=== PATIENT | male | born 1970 | race Caucasian/White ===

== ENCOUNTER 2019-04-30 11:17 | Observation (INO) ==
[2019-04-30] MEDS ORDERED: Nitroglycerin 0.4 MG TAB.SUBL SL PRN (11:34)
[2019-04-30] MEDS ORDERED: Isovue-370 500 ML BOTTLE IVP ONE (11:36)
--- NOTE | 2019-04-30 11:40 | Emergency Department Note ---
Disposition Clinical Impression: Chest pain Qualifiers: Chest pain type: unspecified Qualified Code(s): R07.9 - Chest pain, unspecified Disposition: Still a Patient Time of Disposition: 11:40 General Adult HPI - General Chief complaint: ED Weakness Stated complaint: GREEN,Left shoulder/leg pain,weakness Time Seen by Provider: 04/30/19 11:24 Source: patient Limitations: no limitations Nursing Notes Reviewed: Yes Vital Signs Reviewed: Yes - History of Present Illness HPI Narrative: Attestation note: Patient was seen with the emergency medicine resident/nurse practitioner/fausto velez community relations assistant/transitional resident/medical student: Dr. Silvestre Thorpe I have personally performed a face to face evaluation on this patient. I have reviewed and agree with history and physical examination patient management and disposition. I was present for the significant portions of the performance and interpretation of procedures and EKGs. Briefly the salient points of the case are as follows: 49-year-old male presents with chest discomfort and left arm pain and left lower extremity dysesthesias since Tuesday. Currently chest pain-free aggravating or alleviating symptoms he is hypertensive 154/113. This had a history of hypertension however elected to discontinue his blood pressure medications. Patient has no sensorimotor levels. Patient's heart scores about 4. Patient will undergo CT scan of the head to exclude neurologic issues aortogram to exclude the possibility of aortic dissection troponin and other screening labs with admission anticipated. Disposition pending. Pain Scale: 0 Past Medical History - Past Medical History Medical history: Reports: no medical history Psychiatric history: Reports: no psych history - Social History Smoking Status: Current every day smoker Alcohol use: Reports: occasionally Drug use: Reports: none Physical Exam - General Limitations: no limitations General appearance: alert, in no apparent distress Course Vital Signs Temperature 97.8 F 04/30/19 11:26 Pulse Rate 86 04/30/19 11:26 Respiratory Rate 20 04/30/19 11:26 Blood Pressure 154/114 04/30/19 11:26 O2 Sat by Pulse Oximetry 98 04/30/19 11:26 Temperature 97.8 F 04/30/19 11:26 Pulse Rate 86 04/30/19 11:26 Respiratory Rate 20 04/30/19 11:26 Blood Pressure 154/114 04/30/19 11:26 O2 Sat by Pulse Oximetry 98 04/30/19 11:26 Oxygen Delivery Oxygen Delivery Room Air
--- NOTE | 2019-04-30 11:46 | Emergency Department Note ---
Disposition Clinical Impression: Unstable angina, Elevated blood pressure reading Disposition: Admitted As Inpatient Referrals: NONE,PCP [Primary Care Provider] - Forms: ED Satisfaction Letter Time of Disposition: 13:43 General Adult HPI - General Chief complaint: ED Weakness Stated complaint: GREEN,Left shoulder/leg pain,weakness Time Seen by Provider: 04/30/19 11:24 Source: patient Limitations: no limitations Nursing Notes Reviewed: Yes Vital Signs Reviewed: Yes - History of Present Illness HPI Narrative: 49-year-old male presents emergency department with concern for chest pain that started 3 days ago. Patient states that it was about 3:00 in the morning on Tuesday when he experienced some burning symptoms that he thought was his reflux. Patient states that he felt that there was some radiation of the symptoms into his left upper extremity and left neck and face. Patient states that the chest pain went away shortly afterward. 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 Stated he had a funny feeling in his face as well then. Has not taken anything to help his symptoms. He notices that exertion causes symptoms to become worse but nothing alleviates them. Patient states that he has had some intermittent left leg extremity numbness as well. Reports a DVT study that was negative at an outside facility. Reports that this is been going on for the last couple months. Patient is a smoker. He does have high blood pressure which he does not take any medication for anymore. Pain Scale: 0 - Related Data Allergies Allergy/AdvReac Type Severity Reaction Status Date / Time No Known Allergies Allergy Verified 04/30/19 11:52 All systems ED: reviewed and negative except as stated. Review of Systems: As Per HPI Constitutional: Denies: fever Cardiovascular: Reports: chest pain Respiratory: Denies: dyspnea Gastrointestinal: Denies: abdominal pain, nausea Musculoskeletal: Denies: back pain, neck pain Neurological: Reports: weakness, numbness, paresthesias Past Medical History - Past Medical History Attestation: Yes The following information was validated with the patient. Medical history: Reports: hypertension Psychiatric history: Reports: no psych history - Social History Smoking Status: Current every day smoker Alcohol use: Reports: occasionally Drug use: Reports: none Physical Exam - General Limitations: no limitations General appearance: alert, in no apparent distress - Head Head exam: normocephalic - Eye Eye exam: Present: EOMI - ENT ENT exam: mucous membranes moist - Neck Neck exam: Present: trachea midline - Chest Chest inspection: Present: symmetric chest wall rise - Respiratory Respiratory exam: Present: normal lung sounds bilaterally. Absent: respiratory distress, accessory muscle use - Cardiovascular Cardiovascular exam: Present: regular rate, normal rhythm, normal heart sounds - Abdominal Exam Abdominal exam: Present: soft, Non-Tender. Absent: distention, guarding, rebound, rigidity - Extremities Exam Extremities exam: Present: normal capillary refill - Back Exam Back exam: Present: full ROM - Neurological Exam Neurological exam: Present: alert, oriented X3, CN II-XII intact, other (NIH of 0, GCS 15). Absent: motor sensory deficit - Psychiatric Psychiatric exam: Present: normal affect, normal mood - Skin Skin exam: Present: warm, dry, intact, normal color. Absent: rash Course Vital Signs Temperature 97.8 F 04/30/19 11:26 Pulse Rate 86 04/30/19 11:26 Respiratory Rate 20 04/30/19 11:26 Blood Pressure 154/114 04/30/19 11:26 O2 Sat by Pulse Oximetry 98 04/30/19 11:26 Temperature 97.8 F 04/30/19 11:26 Pulse Rate 85 04/30/19 13:13 Respiratory Rate 16 04/30/19 13:13 Blood Pressure 106/71 04/30/19 13:13 O2 Sat by Pulse Oximetry 96 04/30/19 13:13 Oxygen Delivery Oxygen Delivery Room Air Medical Decision Making - [facility] Narrative Medical decision making narrative: 49-year-old male presents emergency department with concern for chest pain as well as some intermittent subjective numbness and tingling in his left upper and left lower extremity. Patient currently chest pain-free at this time but having numbness and tingling left upper extremity. EKG did not reveal any ischemic changes. Troponin negative. Chest x-ray revealed no acute cardiopulmonary abnormality. CT scan of head was obtained as patient was having numbness in left upper extremity and lower extremity which could be strokelike. NIH was 0 and symptoms have been going on for well over 24 hours which puts him out of the window and out of consideration for TPA. 12:49 patient had improvement of symptoms of numbness and tingling in his left upper extremity after administration of nitroglycerin. Blood pressure is also significantly improved. We obtained dissection study and this was negative for evidence of dissection. There was incidental finding of compression fracture. I discussed this with patient. Patient with heart score 4. Offered him admission as there is concern that his symptoms may be unstable in nature as they have been waxing and waning over the last few days. He agreed as well as his . Also, with poor compliance with his medications, this will be an appropriate time to address that. Dr. Tony accepted the patient. He is full code. Chest X-Ray 04/30/19 11:35 IMPRESSION: No active cardiopulmonary disease D/ / Tres Grimaldo MD / Tres Grimaldo MD Interpreting Provider: Tres Grimaldo MD Head CT 04/30/19 11:35 IMPRESSION: No acute intracranial abnormality. D/ / Neymar Fernando MD / Neymar Fernando MD Interpreting Provider: Neymar Fernando MD Dissection 04/30/19 11:36 IMPRESSION: No acute abnormality in the chest, abdomen or pelvis. D/ / 04/30/2019 13:26:19 Curtis Perrin MD / rikki Interpreting Provider: Curtis Perrin MD - Lab Data Result diagrams: 04/30/19 11:48 04/30/19 11:48 Lab Results 04/30/19 04/30/19 Range/Units 11:48 11:48 WBC 6.9 (4.3-11.1) K/mcL RBC 4.69 (4.19-5.50) M/mcL Hgb 16.3 (12.9-16.9) g/dL Hct 45.6 (37.5-50.1) % MCV 97.2 (83.0-100.0) fL MCH 34.8 H (28.0-33.3) pg MCHC 35.7 H (31.6-35.5) g/dL RDW 12.2 (11.5-14.5) % Plt Count 255 (140-400) K/mcL MPV 9.0 L (9.4-12.4) fL Immature Gran % 0.3 (0-4) % Seg Neutrophils % 48.9 % Lymphocytes % 39.1 % Monocytes % 9.0 % Eosinophils % 1.7 % Basophils % 1.0 % Neutrophils # 3.4 (1.6-8.9) K/mcL Lymphocytes # 2.7 (0.6-4.6) K/mcL Monocytes # 0.6 (0.0-1.3) K/mcL Eosinophils # 0.1 (0.0-0.6) K/mcL Basophils # 0.1 (0.0-0.2) K/mcL Sodium 136 (136-145) mEq/L Potassium 4.1 (3.5-5.1) mEq/L Chloride 104 (98-107) mEq/L Carbon Dioxide 28 (23-29) mEq/L BUN 9 (6-20) mg/dL Creatinine 0.92 (0.70-1.30) mg/dL Est GFR ( Amer) > 60 (> 60) Est GFR (Non-Af Amer) > 60 (> 60) BUN/Creatinine Ratio 10 (6-26) Glucose 109 H (70-105) mg/dL Calculated Osmolality 281 (280-300) Calcium 9.2 (8.6-10.3) mg/dL Troponin I < 0.03 (< 0.04) ng/mL - Radiology Data Radiology results reviewed: Yes I reviewed the patient's radiology results. - EKG Data EKG #1 EKG attestation: Yes I reviewed and interpreted this EKG. EKG results narrative: 1200 Heart rate 86 bpm, HI interval 164 ms, QRS duration 77 ms, QT 325, normal axis. Sinus rhythm ventricular rate 86 bpm. No evidence of any ischemic ST changes. Compared to a study performed on 03/10/2004. Heart Score - Score History: Moderately Suspicious EKG: Normal Age: 45-65 Risk Factors: Equal/Greater than 3 risk factor or history of atherosclerotic disease Troponin: Less than normal limit HEART Score Total: 4
[2019-04-30 12:08] LABS: Basophils # 0.1 K/mcL (0.0-0.2); Eosinophils # 0.1 K/mcL (0.0-0.6); Eosinophils % 1.7 %; Hematocrit 45.6 % (37.5-50.1); Hemoglobin 16.3 g/dL (12.9-16.9); Immature Granulocytes % 0.3 % (0-4); Lymphocytes # 2.7 K/mcL (0.6-4.6); Lymphocytes % 39.1 %; Mean Corpuscular HGB Conc 35.7 g/dL (31.6-35.5); Mean Corpuscular Hemoglobin 34.8 pg (28.0-33.3); Mean Corpuscular Volume 97.2 fL (83.0-100.0); Monocytes # 0.6 K/mcL (0.0-1.3); Neutrophils # 3.4 K/mcL (1.6-8.9); Platelet Count 255 K/mcL (140-400); Red Blood Count 4.69 M/mcL (4.19-5.50); Red Cell Distribution Width 12.2 % (11.5-14.5); Segmented Neutrophils % 48.9 %; White Blood Count 6.9 K/mcL (4.3-11.1)
[2019-04-30 12:28] LABS: BUN/Creatinine Ratio 10 (6-26); Blood Urea Nitrogen 9 mg/dL (6-20); Calcium 9.2 mg/dL (8.6-10.3); Carbon Dioxide 28 mEq/L (23-29); Chloride 104 mEq/L (98-107); Glucose 109 mg/dL (70-105); Osmolality,Calculated 281 (280-300); Potassium 4.1 mEq/L (3.5-5.1); Sodium 136 mEq/L (136-145); Troponin I < 0.03 ng/mL (< 0.04); eGFR For African Americans > 60 (> 60); eGFR For Non-African Americans > 60 (> 60)
[2019-04-30] MEDS ORDERED: Aspirin 81 MG TAB.CHEW PO STA (13:37)
[2019-04-30] MEDS ORDERED: Naloxone 0.4 MG/ML INJ IVP PRN (15:05)
--- NOTE | 2019-04-30 15:13 | Internal Med History&Physical ---
Date of Encounter: 04/30/19 Time of Encounter: 14:35 Internal Medicine - H&P: HPI Chief complaint: left arm pain/chest discomfort Admitted From: Home Plans for Post Hospital Care: Home History of present illness: Mr. Sutton is a 49 year old male with hx of tobacco abuse, hypertension(not on antihypertensive meds) who presents to the ER for evaluation of left arm pain/tingling with chest discomfort. 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 He states he had minimal chest discomfort which prompted his arrival to the ER. He states this weekend, early Tuesday morning, he was awoken from sleep for severe heart burn and he felt weak all day Tuesday. However does report of [place]. He states his presenting sy mptoms resolved after he received a dose of nitro SL in the ER. Currently he denies any chest pain, sob, arm pain, abd pain, n/v, fever, or chills. He reports of smoking 1-2ppd and is not ready to quit. Reports of not taking any home medications at this time, states his doctor took him off BP meds, because his BP was within normal limits. Ten point ROS is negative except as listed above Past Med Surg Social Fam HX - Past Medical History Medical history: hypertension Psychiatric history: no psych history - Social History Smoking Status: Current every day smoker Alcohol use: occasionally Drug use: none Internal Medicine - H&P: Meds No Known Home Drugs 04/30/19 [History] Allergy/AdvReac Type Severity Reaction Status Date / Time No Known Allergies Allergy Verified 04/30/19 11:52 All Systems PM: A 10-system review of systems was performed and is negative for pertinent findings except as documented above in the HPI. Review of systems: Ten point ROS is negative except as listed above - Constitutional Vitals: Temp Pulse Resp BP Pulse Ox 97.8 F 82 15 126/87 96 04/30/19 11:26 04/30/19 14:00 04/30/19 14:00 04/30/19 14:00 04/30/19 14:00 Exam: General: No acute distress, AAO x 3, morbidly obese HEENT: EOMI, PERRLA, NC/AT, no scleral icterus Respiratory: Clear to auscultate bilaterally, no wheezing, no rales Cardiovascular: Regular, Rate, Rhythm, No murmurs GI: Soft, Non tender, non distended, normal bowel sounds Ext: No edema, no tenderness, positive pulses Neuro: AAO x 3, no focal deficits Rest of the clinical exam is noncontributory Internal Med - H&P Results - Labs CBC & Chem 7: 04/30/19 11:48 04/30/19 11:48 Labs: Short CBC 04/30/19 Range/Units 11:48 WBC 6.9 (4.3-11.1) K/mcL Hgb 16.3 (12.9-16.9) g/dL Hct 45.6 (37.5-50.1) % Plt Count 255 (140-400) K/mcL Neutrophils # 3.4 (1.6-8.9) K/mcL BMP 04/30/19 11:48 Sodium 136 Potassium 4.1 Chloride 104 Carbon Dioxide 28 BUN 9 Creatinine 0.92 Glucose 109 H Calcium 9.2 Cardiac Enzymes 04/30/19 Range/Units 11:48 Troponin I < 0.03 (< 0.04) ng/mL - Impressions ITS Impressions Chest X-Ray 04/30/19 11:35 IMPRESSION: No active cardiopulmonary disease D/ / Tres Grimaldo MD / Tres Grimaldo MD Interpreting Provider: Tres Grimaldo MD Head CT 04/30/19 11:35 IMPRESSION: No acute intracranial abnormality. D/ / Neymar Fernando MD / Neymar Fernando MD Interpreting Provider: Neymar Fernando MD Dissection 04/30/19 11:36 IMPRESSION: No acute abnormality in the chest, abdomen or pelvis. D/ / 04/30/2019 13:26:19 Curtis Perrin MD / rikki Interpreting Provider: Curtis Perrin MD - Assessment and Plan (1) Chest pain Current Visit: Yes Status: Acute Assessment and plan: No prior hx of CAD will admit under observation overnight to rule out ACS no EKG changes reported concerning for ischemia first troponin negative, will monitor serial Troponin f/u 2D echo f/u lipid panel continue Aspirin, lipitor NPO after midnight for nuclear stress test in am consider cardiology evaluation if above test findings are abnormal continue tele monitoring f/u HbA1C LOS < 2 midnights Qualifiers: Chest pain type: unspecified Qualified Code(s): R07.9 - Chest pain, unspecified (2) Elevated blood pressure reading Current Visit: Yes Status: Acute Assessment and plan: Reported to have one reading of elevated BP repeat BP within acceptable range continue to closely monitor consider adding PO antihypertensive therapy if remains hypertensive (3) Tobacco abuse Current Visit: Yes Status: Chronic Assessment and plan: smoking cessation counseling provided patient not ready to quit at this time refused nicotine supplementation therapy (4) DVT prophylaxis Current Visit: Yes Status: Acute Assessment and plan: Heparin SQ (5) Obesity (BMI 30-39.9) Current Visit: Yes Status: Chronic - Time Spent With Patient Total time spent is greater than 50% in coordination of care (as documented) at patient's floor/unit and/or counseling patient:
[2019-04-30] MEDS: *HR* Heparin 5,000 UNIT/ML VIAL SQ SCH (17:24)
[2019-04-30] MEDS ORDERED: Perflutren Lipid Microsphere 1.3 ML in 0.9 % Sodium Chloride 8.7 ML IVP ONE (20:38)
[2019-05-01] MEDS: *HR* Heparin 5,000 UNIT/ML VIAL SQ SCH (05:48)
[2019-05-01 06:44] LABS: Basophils # 0.1 K/mcL (0.0-0.2); Basophils % 1.1 %; Eosinophils # 0.2 K/mcL (0.0-0.6); Eosinophils % 2.7 %; Hematocrit 46.4 % (37.5-50.1); Hemoglobin 15.8 g/dL (12.9-16.9); Immature Granulocytes % 0.3 % (0-4); Lymphocytes # 2.8 K/mcL (0.6-4.6); Mean Corpuscular HGB Conc 34.1 g/dL (31.6-35.5); Mean Corpuscular Hemoglobin 34.3 pg (28.0-33.3); Mean Corpuscular Volume 100.9 fL (83.0-100.0); Mean Platelet Volume 9.1 fL (9.4-12.4); Monocytes # 0.6 K/mcL (0.0-1.3); Monocytes % 9.7 %; Neutrophils # 2.9 K/mcL (1.6-8.9); Platelet Count 243 K/mcL (140-400); Red Cell Distribution Width 12.2 % (11.5-14.5); Segmented Neutrophils % 44.2 %; White Blood Count 6.6 K/mcL (4.3-11.1)
[2019-05-01 07:02] LABS: BUN/Creatinine Ratio 13 (6-26); Blood Urea Nitrogen 12 mg/dL (6-20); Carbon Dioxide 25 mEq/L (23-29); Chloride 105 mEq/L (98-107); Chol/HDL Ratio 3.9 (0-4.9); Cholesterol 144 mg/dL (< 200); Glucose 110 mg/dL (70-105); HDL Cholesterol 37 mg/dL (40-59); LDL Cholesterol,Calculated 80 mg/dL (0-99); Osmolality,Calculated 282 (280-300); Phosphorous 3.8 mg/dL (2.7-4.5); Potassium 4.6 mEq/L (3.5-5.1); Sodium 136 mEq/L (136-145); Triglycerides 136 mg/dL (< 150); eGFR For African Americans > 60 (> 60); eGFR For Non-African Americans > 60 (> 60)
[2019-05-01 07:36] LABS: Estimated Average Glucose 120 mg/dl; Hemoglobin A1C 5.8 %
[2019-05-01] MEDS: Regadenoson 0.4 MG/5 ML SYRINGE IVP ONE ×2 (08:16→08:20)
[2019-05-01 11:02] VITALS: BP 103/58
--- NOTE | 2019-05-01 14:09 | Discharge Summary ---
- NOTES TO OUTPATIENT PROVIDER Notes to Outpatient Provider: Pt admitted for chest pain. ACS ruled out however 2D echo reported mild diastolic dysfunction. Clinically asymptomatic. Please consider cardiology evaluation as outpatient. Orders not resulted at time of discharge: Pending orders 04/30/19 15:07 NM hugh perf SPECT multi [NM] Routine Date of Encounter: 05/01/19 Time of Encounter: 14:05 - Discharge Diagnosis (1) Chest pain Priority: Primary Status: Resolved Qualifiers: Chest pain type: unspecified Qualified Code(s): R07.9 - Chest pain, unspecified (2) Elevated blood pressure reading Priority: Secondary Status: Resolved (3) Tobacco abuse Priority: Secondary Status: Chronic (4) DVT prophylaxis Priority: Secondary Status: Acute (5) Obesity (BMI 30-39.9) Priority: Secondary Status: Chronic Hospital course: Mr. Sutton is a 49 year old male with hx of tobacco abuse, hypertension(not on antihypertensive meds) who presents to the ER for evaluation of left arm pain/tingling with chest discomfort. Serial TNI remained negative, nuclear stress test was negative for ischemic perfusion defect. 2D echo reported mild diastolic dysfunction. Pt seen and examined earlier today. Reports resolution of presenting complains and no recurrent pain or discomfort reported. Pt is educated about smoking cessation. He is medically stable for discharge to home with outpatient follow up with PCP. Pt in agreement with the discharge care and plan, all questions were answered. Discharge discussed with: patient, family, nurse, social work, case management Time spent discussing smoking cessation with patient: 3 to 10 minutes - Time Spent with Patient Total time spent providing and/or coordinating discharge services: 28minutes Time spent: Less than 30 minutes - Discharge Medications Prescriptions: No Action No Known Home Drugs 1 each .ROUTE AD each Home Medications: No Known Home Drugs 04/30/19 [History] Allergies/Adverse Reactions: Allergy/AdvReac Type Severity Reaction Status Date / Time No Known Allergies Allergy Verified 04/30/19 11:52 Date of admission: 04/30/19 15:54 Primary care physician: PCP NONE Discharging clinician: Diane Flanagan Anticipated date of discharge: 05/01/19 - Constitutional Vitals: Temp Pulse Resp BP Pulse Ox 98.1 F 78 16 103/58 96 05/01/19 10:54 05/01/19 10:54 05/01/19 10:54 05/01/19 10:54 05/01/19 10:54 Exam: General: No acute distress, AAO x 3, morbidly obese HEENT: EOMI, PERRLA, NC/AT, no scleral icterus Respiratory: Clear to auscultate bilaterally, no wheezing, no rales Cardiovascular: Regular, Rate, Rhythm, No murmurs GI: Soft, Non tender, non distended, normal bowel sounds Ext: No edema, no tenderness, positive pulses Neuro: AAO x 3, no focal deficits Rest of the clinical exam is noncontributory - Patient Status Disposition: Home, Self-Care Condition: Good Functional capacity at discharge: independent ambulation - Discharge Instructions Follow Up With: NONE,PCP [Primary Care Provider] - Additional Instructions: Please follow up with your primary care physician within five days after your discharge from the hospital. - Diet and Activity Activity: resume usual activities as tolerated
--- NOTE | 2019-05-02 15:15 | Electrocardiograph Report ---
[facility] Test Date: 2019-04-30 Pat Name: Tom Sutton Department: EXAM15 Room: 2A33 Gender: M Intr[employer]et Developer: : 1970 Requested By: Silvestre Thorpe Order Number: [id number] Reading MD: Monty Mishra Measurements Intervals [place] Rate: 86 P: 16 AL: 164 QRS: 27 QRSD: 77 T: 31 QT: 325 QTc: 389 Interpretive Statements Sinus rhythm Probable left atrial enlargement Abnormal R-wave progression, early transition Electronically Signed On 05-02-2019 15:13:51 EDT by Monty Mishra
== END 2019-05-01 14:45 | disposition home or self-care (01) ==
LOC: 2ANU 11:17 → EMEROOARM 11:17 → 2ANU 16:31
PROVIDERS: ADMIT Internal Medicine Nephrology; ATTEND Internal Medicine Nephrology